=== PATIENT | female | born 1975 | race Caucasian/White ===

== ENCOUNTER 2017-07-27 18:24 | Inpatient (IN) ==
--- NOTE | 2017-07-27 19:51 | DI ---
EXAM: Chest one view HISTORY: Lower extremity edema, cough, fever COMPARISON: 11/25/2015 TECHNIQUE: Single view chest was performed. FINDINGS: There is lower airway bronchial wall thickening. There is no focal airspace consolidation . There is no pleural effusion or pneumothorax. The heart is normal in size. The mediastinal contou r is normal. There is no acute abnormality of the bones. IMPRESSION: Lower airway thickening may represent reactive airways disease or bronchiolitis. No foc al airspace consolidation.
--- NOTE | 2017-07-27 20:23 | ED.PDOC ---
General ED Provider: Dr. MAHAMED MCCLAIN-ER Chief Complaint: Extremity Swelling/Pain Stated Complaint: i was having chest painim better now Time Seen by Physician: 20:22 Mode of Arrival: Walk-In Information Source: Patient Exam Limitations: No limitations Nursing and Triage Documentation Reviewed and Agree: Yes Reviewed sepsis parameters & appropriate labs ordered?: Yes System Inflammatory Response Syndrome: Not Applicable Sepsis Protocol: For patient's 13 years and over: Temp is 96.8 and below OR 101 and greater Pulse >90 BPM Resp >20/minute Acutely Altered Mental Status Are patient's symptoms suggestive of a new infection, such as: -Pneumonia -Skin, Soft Tissue -Endocarditis -UTI -Bone, Joint Infection -Implantable Device -Acute Abdominal Infection -Wound Infection -Meningitis -Blood Stream Catheter Infection -Unknown Cardiovascular Complaint Exam - Chest Pain Complaint/Exam Onset: Gradual Duration: several hours Symptoms Are: Resolved Length of Chest Pain Episodes: 20 min Initial Severity: Mild Current Severity: Mild Location: Reports: Diffuse Pain Radiates: Reports: None Character: Reports: Dull Aggravating: Reports: None Alleviating: Reports: None Associated Signs and Symptoms: Denies: Diaphoresis, Nausea, Vomiting, Fever, Palpitations, Cough, Hemoptysis, Back pain, Abdominal pain, Dizziness, Short of air, Calf pain, Calf swelling History of Healthcare-Acquired Pneumonia: Reports: No AMI/ACS Risk Factors: Reports: None Pulmonary Embolism Risk Factors: Reports: None Prior Care for this Complaint: No Recent Stress Test: No Recent Echo/LV Function: No JVD Present: No Subcutaneous Emphysema Present: No Diminshed Breath Sounds: No Reproducible Chest Wall Pain: No Bilateral Pulses Present: Yes Unequal Pulses Noted: No Order Entry Technician Consulted: No Differential Diagnoses: ACS, Stable Angina Review of Systems - Review Of Systems Constitutional: Reports: No symptoms Eyes: Reports: No symptoms Ears, Nose, Mouth, Throat: Reports: No symptoms Respiratory: Reports: No symptoms Cardiac: Reports: Chest pain GI: Reports: No symptoms : Reports: No symptoms Musculoskeletal: Reports: No symptoms Skin: Reports: No symptoms Neurological: Reports: No symptoms Endocrine: Reports: No symptoms Hematologic/Lymphatic: Reports: No symptoms All Other Systems: Reviewed and Negative Past Medical History - Past Medical History Previously Healthy: No Endocrine: Reports: DM 2 Cardiovascular: Reports: Hypertension Respiratory: Reports: Asthma Hematological: Reports: None Gastrointestinal: Reports: GERD Genitourinary: Reports: None Neuro/Psych: Reports: None Musculoskeletal: Reports: Arthritis Cancer: Reports: None Last Menstrual Period: N/A - Surgical History General Surgical History: Reports: Tubal ligation, , Orthopedic - Family History Family History: Reports: Unknown - Social History Smoking Status: Current every day smoker, Heavy tobacco smoker Hx Substance Use: No Alcohol Screening: None Lives: With family - Immunizations Tetanus Shot up to Date: No Physical Exam - Physical Exam Appearance: Well-appearing, No pain distress, Well-nourished Eyes: NICOLE, EOMI, Conjunctiva clear ENT: Ears normal, Nose normal, Oropharynx normal Neck: Supple Respiratory: Airway patent, Breath sounds clear, Breath sounds equal, Respirations nonlabored Cardiovascular: RRR, Pulses normal, No rub, No murmur GI/: Soft, Nontender, No masses, Bowel sounds normal, No Organomegaly Musculoskeletal: Normal strength, ROM intact, No edema, No calf tenderness Skin: Warm Neurological: Sensation intact, Motor intact, Reflexes intact, Cranial nerves intact, Alert, Oriented Psychiatric: Affect appropriate, Mood appropriate Interpretation - Radiology Interpretation Radiology Interpretation By: Radiologist Radiology Results: Negative Exam Interpreted: CXR - EKG Interpretation Time of EKG #1: 20:23 Rate: Normal Rhythm: Sinus Ectopy: None Gardiner: NL ST Segment: Normal Re-Evaluation - Re-Evaluation Time of Re-Evaluation: 20:24 Status: Improved Vital Signs Stable: Yes Pain Level: 0 Appearance: NAD Lungs: Clear Skin: Warm and Dry Neuro: Alert and Oriented X3 CV: RRR Physician Notification - Case Discussed Physician Notified: dr harvey Time of Notification: 20:24 Critical Care Note - Critical Care Note Total Time (mins): 30 Course - Course Hematology/Chemistry: 07/27/17 19:15 07/27/17 19:15 Orders, Labs, Meds: Lab Review 07/27/17 07/27/17 07/27/17 18:53 19:15 19:15 WBC 8.40 RBC 4.72 Hgb 14.4 Hct 41.1 MCV 87.1 MCH 30.5 MCHC 35.0 RDW Coeff of Christian 12.1 Plt Count 304 Immature Gran % (Auto) 0.4 Neut % (Auto) 54.5 Lymph % (Auto) 33.8 Holmes % (Auto) 6.7 Eos % (Auto) 4.0 Baso % (Auto) 0.6 Immature Gran # (Auto) 0.0 Neut # 4.6 Lymph # 2.8 Holmes # 0.6 Eos # 0.3 Baso # 0.1 D-Dimer (Manual) Puncture Site Lbrach O2 Saturation 96.0 ABG pH 7.452 H ABG pCO2 38.6 ABG pO2 75.0 L ABG HCO3 27 H ABG Total CO2 28 ABG Base Excess 3 H Lamont Test + FiO2 % 21.0 Sodium 136 Potassium 3.9 Chloride 100 Carbon Dioxide 24 Anion Gap 15.9 BUN 19 H Creatinine 0.83 Estimated GFR (MDRD) 75.00 BUN/Creatinine Ratio 22.89 Glucose 228 H Calcium 9.1 Total Bilirubin < 0.3 AST 17 ALT 27 Alkaline Phosphatase 100 H Total Creatine Kinase 56 Troponin I < 0.0100 B-Natriuretic Peptide Total Protein 7.1 Albumin 3.1 L Globulin 4.0 Albumin/Globulin Ratio 0.78 07/27/17 07/27/17 19:15 19:23 WBC RBC Hgb Hct MCV MCH MCHC RDW Coeff of Christian Plt Count Immature Gran % (Auto) Neut % (Auto) Lymph % (Auto) Holmes % (Auto) Eos % (Auto) Baso % (Auto) Immature Gran # (Auto) Neut # Lymph # Holmes # Eos # Baso # D-Dimer (Manual) 332.48 Puncture Site O2 Saturation ABG pH ABG pCO2 ABG pO2 ABG HCO3 ABG Total CO2 ABG Base Excess Lamont Test FiO2 % Sodium Potassium Chloride Carbon Dioxide Anion Gap BUN Creatinine Estimated GFR (MDRD) BUN/Creatinine Ratio Glucose Calcium Total Bilirubin AST ALT Alkaline Phosphatase Total Creatine Kinase Troponin I B-Natriuretic Peptide < 10 Total Protein Albumin Globulin Albumin/Globulin Ratio Orders Category Date Time Status ABG DRAW REQUEST Stat CARDIO 07/27/17 18:53 Completed EKG-(ED ONLY) Stat CARDIO 07/27/17 18:51 Completed Tucking Machine Operator [ED IT COMPLIANCE MANAGER APPLIED] .ONCE EMERGENCY 07/27/17 18:55 Active IV [ED IV/MEDIPORT/POWERPORT] .ONCE EMERGENCY 07/27/17 18:54 Active ABG Stat LAB 07/27/17 18:53 Completed B-TYPE NATRIURETIC PEPTIDE Stat LAB 07/27/17 19:23 Completed CBC W/ AUTO DIFF Stat LAB 07/27/17 19:15 Completed CK [CREATINE KINASE] Stat LAB 07/27/17 19:15 Completed COMPREHENSIVE METABOLIC PANEL Stat LAB 07/27/17 19:15 Completed D-DIMER Stat LAB 07/27/17 19:15 Completed TROPONIN I Stat LAB 07/27/17 19:15 Completed URINALYSIS C & S IF INDICATED Stat LAB 07/27/17 18:53 Uncollected 0.9 % Sodium Chloride [Saline Flush] MEDS 07/27/17 18:54 Ordered 1 syr IVF PRN PRN CXR [CHEST, 1V AP ONLY] Stat RADS 07/27/17 18:53 Completed Medications Generic Name Dose Route Start Last Admin Trade Name Freq PRN Reason Stop Dose Admin Sodium Chloride 1 syr 07/27/17 18:54 Saline Flush IVF PRN PRN To flush IV Vital Signs: Temp Pulse Resp BP Pulse Ox 07/27/17 18:25 97.6 F 104 H 20 177/93 H 94 L SHABANA Risk Score SHABANA Risk Score: Risk Score Odds of by 30D 0 0.1 (0.1-0.2) 1 0.3 (0.2-0.3) 2 0.4 (0.3-0.5) 3 0.7 (0.6-0.9) 4 1.2 (1.0-1.5) 5 2.2 (1.9-2.6) 6 3.0 (2.5-3.6) 7 4.8 (3.8-6.1) Departure - Departure Time of Disposition: 20:24 Disposition: HOME SELF-CARE Discharge Problem: Chest pain Qualifiers: Chest pain type: unspecified Qualified Code(s): R07.9 - Chest pain, unspecified Instructions: Chest Pain (ED) Condition: Good Pt referred to PMD for follow-up: Yes Allergies/Adverse Reactions: [place] [facility] [place] Reaction (Verified 11/21/15 00:02) Home Medications: Ambulatory Orders 1 [No Reported Medications] 07/27/17 Disposition Discussed With: Patient, Family
[2017-07-27] MEDS ORDERED: LOVENOX SUBCUT STA (20:27)
[2017-07-27] MEDS ORDERED: ASPIRIN EC PO STA (20:27)
[2017-07-27 21:16] VITALS: BMI 32.5
[2017-07-28] MEDS ORDERED: TORADOL IVP STA (05:38)
[2017-07-28] MEDS ORDERED: DECADRON 4 MG/ML SDV IM STA (08:43)
[2017-07-28] MEDS ORDERED: PRILOSEC PO PRN (08:45)
[2017-07-28] MEDS ORDERED: ZESTRIL PO SCH (09:00)
[2017-07-28] MEDS: NEURONTIN PO SCH ×4 (10:07→21:20)
--- NOTE | 2017-07-28 12:51 | STRESSMOD ---
Ordering Physician: HOSPITALIST--MARLY LÓPEZ Date of Test: 07/28/17 Medical History: HEART CATH 15 YEARS AGO, COPD, CHEST PAIN, DM2, HTN, HYPERLIPIDEMIA Current Medications: HUMULIN, GABAPENTIN, PRILOSEC Resting EKG: SINUS RHYTHM/ NO ACUTE CHANGES Target Heart Rate: 150/177 STAGE MPH/GRADE HEART RATE BPM BLOOD PRESSURE mmhg RHYTHM S-T SEGMENT UP DOWN SYMPTOMS,COMMENTS At Rest 80 168/90 SR X NONE 1 1.7/0% 106 172/90 SR X NONE 2 1.7/5% 115 176/92 SR X NONE 3 1.7/10% 180/100 4 2.5/12% 5 3.4/14% 6 4.2/16% 7 5.18% Immediately after 133 SR X SHORT OF BREATH Total Time: 10:00 Maximum Heart Rate Reached: 133 Reason for Termination: SHORT OF BREATH 3 MINUTES POST EXERCISE: HR 98 BPM, BP 182/92 MMHG 5 MINUTES POST EXERCISE: HR 93 BPM, BP 172/88 MMHG INTERPRETATION: 98% OXYGEN SATURATION WITH EXERCISE ON ROOM AIR METS 7.0 1. NO EVIDENCE OF ISCHEMIA BY ST-T WAVE FROM HEART RATE 80 BPM TO 133 BPM 2. NO CHEST PAIN OR DISCOMFORT 3. BLOOD PRESSURE RESPONSE : HYPERTENSION, RESTING AND POST EXERCISE 4. NO ARRHYTHMIAS NORMAL LEFT VENTRICULAR CONTRACTILITY--RESTING AND POST EXERCISE MTDD
--- NOTE | 2017-07-28 12:54 | ECHOSTRESS ---
Date of Exam: 07/28/17 Ordering Physician: HOSPITALIST--MARLY LÓPEZ Reason for Echo: HYPERTENSION, CHEST PAIN, STRESS TEST--NO ISCHEMIA M-Mode Normal Adult Results LV Dimensions Normal Adult Results AoV Opening excursions >1.6 LVEDD-base- 3.5-5.8 Ao root dimensions 2.0-3.7 LVESD-base- 3.1-4.6 L. Atrium dimensions 1.9-3.8 Post. Wall thickness 0.8-1.1 IV septum (thickness) 0.7-1.2 Post. Wall excursion 0.72-1.3 Septal motion Systolic motion R. Ventricular cavity 1.5-2.0 LVEF 60% Paradoxical septal wall motion 2-D: NORMAL LEFT VENTRICULAR CONTRACTILITY--RESTING AND POST EXERCISE M-MODE: MV: AV: TV: PV: CHAMBER SIZE: WALL MOTION: NORMAL LEFT VENTRICULAR CONTRACTILITY--RESTING AND POST EXERCISE PERICARDIUM: INTERPRETATION: 1. NORMAL LEFT VENTRICULAR CONTRACTILITY--RESTING AND POST EXERCISE MTDD
[2017-07-28] MEDS: HUMULIN R SUBCUT PRN ×3 (13:44→22:02)
[2017-07-28] MEDS ORDERED: JANUVIA PO SCH (15:00)
[2017-07-28] MEDS ORDERED: NON-FORMULARY MEDICATION PO SCH (15:45)
[2017-07-28] MEDS: AMOXIL PO SCH ×2 (15:57→21:20)
[2017-07-28] MEDS ORDERED: LIPITOR PO SCH (21:00)
[2017-07-28] MEDS ORDERED: AMOXIL ONE (21:14)
[2017-07-29 06:18] VITALS: BP 118/73; TEMP 97.7
[2017-07-29] MEDS: HUMULIN R SUBCUT PRN (06:27)
--- NOTE | 2017-08-21 14:19 | HP ---
DATE OF SERVICE: 07/28/17 CHIEF COMPLAINT: Chest pain. HISTORY OF PRESENT ILLNESS: This is a 42 year old female who came to the emergency room with chest pain, left sided. The patient had been having gradually increasing leg edema and started having shortness of breath. The left sided chest pain does not radiate. The patient got scared and came to the emergency room for the evaluation and was seen by Dr. Ching in the emergency room. Initial blood work was normal. D dimer was negative. ABG showed the pH of 7.452, PCO2 38.6, PO2 75. Chemistry was normal. Glucose 261. Meanwhile, asking the patient, the patient did say that she ran out of her medications and for almost six months has not been taking any medication for the cholesterol and the diabetes. At that time, she was admitted to the hospital for the evaluation of the chest pain and the leg edema. REVIEW OF SYSTEMS: Weakness, tiredness, leg edema. CONSTITUTIONAL: No fever, no chills. HEENT: Normal. ENDOCRINE: No weight gain; no weight loss. CVS: Chest pain. No PND, no orthopnea. Shortness of breath. No PND, no orthopnea. RESPIRATORY: No cough, no congestion. No hemoptysis. GI: No nausea, no vomiting. No abdominal pain. No melena. : No hematuria. No polyuria. MUSCULOSKELETAL: No joint swelling. PSYCHIATRIC: Stressed out and anxious. No depression. No suicidal thoughts. No homicidal thoughts. SKIN: Intact, no open lesions. PAST MEDICAL HISTORY: Coronary artery disease. The patient did have a heart catheterization at the age of 26. Heart murmur Dyslipidemia Diabetes Peripheral neuropathy COPD Asthma Peptic ulcer disease Hiatal hernia The patient has not been taking any medications for almost six months. Rheumatoid arthritis Bipolar disorder Depression Anxiety Substance use disorder PAST SURGICAL HISTORY: Tubal ligation Tonsillectomy PERSONAL HISTORY: Does smoke. No alcohol and no drugs. FAMILY HISTORY: Significant for the diabetes and heart problem. MEDICATIONS: Insulin, Gabapentin, Omeprazole, Multivitamin and Combivent inhalant. ALLERGIES: Cefadroxil PHYSICAL EXAMINATION: V/S: Blood pressure 173/93, respiratory rate 20, heart rate 104, temperature 97.6, saturation 94 on room air. HEENT: Atraumatic, normocephalic. No scleral icterus. Mucosa dry. NECK: Supple. No JVD, no bruit. No lymphadenopathy. No thyromegaly. HEART: S1, S2 normal. No murmur. No cyanosis or clubbing. No ascites. LUNGS: Clear to auscultation. No rales or rhonchi. ABDOMEN: Soft, nontender. Bowel sounds are active. No CVA tenderness. No rigidity or guarding. EXTREMITIES: No cyanosis, clubbing or pedal edema. MUSCULOSKELETAL: Normal joints, no swelling. NEUROLOGICAL: Normal. SKIN: Intact; no open lesions. LYMPHATIC: No lymph nodes palpable. X-RAY: Does show the reactive airway disease. LABS: Sodium 136, potassium 3.9, chloride 100, bicarb 24, BUN 19, creatinine 0.83, glucose 228. The first set of cardiac enzymes are negative. White count 8.40, hemoglobin 14.4, hematocrit 41.4, platelet count 304. ASSESSMENT: 1. CHEST PAIN, RULE OUT ACUTE CORONARY SYNDROME 2. SHORTNESS OF BREATH AND WORSENING LEG EDEMA, RULE OUT CARDIAC VERSUS PULMONARY PROBLEMS 3. DIABETES, OUT OF MEDICATION, UNCONTROLLED DIABETES. 4. DYSLIPIDEMIA 5. OBESITY PLAN: 1. Admit the patient to the regular floor. 2. CBC, CMP today and daily. 3. Cardiac enzymes and Troponin. 4. Toradol for the pain. 5. Lovenox for the DVT prophylaxis. 6. Continue home medications. TIME SPENT: MORE THAN 75 minutes today. ROBERT
--- NOTE | 2017-08-21 14:29 | PN ---
DATE OF SERVICE: 07/28/17 SUBJECTIVE: The patient was admitted with chest pain. The pain is better. She still has the leg edema and is worried about the leg edema. On further questioning, the patient also says that patient has been depressed a lot. Not been able to take her anxiety and depression medications. Otherwise, the chest pain is better and she is worried about the medication. She says that she was not taking the medication as she was not able to afford them. PHYSICAL EXAMINATION: V/S: Blood pressure 133/80, respiratory rate 18, heart rate 101, temperature 97.6, saturation 98. HEENT: Normocephalic, atraumatic. Mucosa dry. NECK: Supple. No JVD, no carotid bruit. No lymphadenopathy. LUNGS: Bilateral basilar crackles. No rales or rhonchi. HEART: S1, S2 normal. No S3. No murmur, gallop or regurgitation. ABDOMEN: Soft, nontender. Bowel sounds active. No rigidity. No rebound or guarding. No CVA tenderness. EXTREMITIES: No clubbing, cyanosis. 1+ edema of lower extremities. MUSCULOSKELETAL: No joint swelling. NEUROLOGIC: Awake, alert, oriented times three. No focal deficit. LYMPHATIC: No lymph nodes palpable. SKIN: Intact. LABS: White count 8.54, hemoglobin 13.5, hematocrit 38.9, platelet count 280, sodium 137, potassium 3.8, chloride 101, bicarb 23, BUN 19, creatinine 0.81, glucose 281, A1C 12.3. Total cholesterol is 264, triglycerides 599. Three sets of cardiac enzymes are negative. BNP is negative. ASSESSMENT: 1. CHEST PAIN, RULE OUT ACS 2. DIABETES UNCONTROLLED. A1C IS 12.3 3. DYSLIPIDEMIA 4. HYPERTENSION 5. OBESITY PLAN: 1. Stress echo. 2. Lifestyle modification and weight loss was discussed. 3. Will talk to the pharmacy and update her medication list. TIME SPENT: More than 35 minutes today ROBERT
--- NOTE | 2017-08-21 15:24 | DS ---
DATE OF SERVICE: 07/29/17 FINAL DIAGNOSIS: 1. CHEST PAIN, NONCARDIAC 2. UNCONTROLLED DIABETES WITH AN A1C 12.3 3. DYSLIPIDEMIA 4. NONCOMPLIANCE WITH MEDICATION 5. HISTORY OF HEART CATHETERIZATION 6. PERIPHERAL NEUROPATHY 7. CHRONIC OBSTRUCTIVE PULMONARY DISEASE 8. GERD 9. PEPTIC ULCER DISEASE 10. TUBAL LIGATION 11. RHEUMATOID ARTHRITIS 12. DEPRESSION 13. BIPOLAR DISORDER PLAN: 1. Discharge the patient home. 2. New medications: Amoxicillin 500 mg twice a day for 7 days Neurontin 400 mg twice a day Prilosec 20 mg p.o. daily Lisinopril 5 mg p.o. daily Invokana 200 mg p.o. daily Januvia 100 mg p.o. daily Lipitor 20 mg p.o. daily 3. One Touch Ultra glucose monitoring was given. 4. Diet: Cardiac and diabetic diet discussed. 5. Activity: As much as tolerated. DISEASE SPECIFIC EDUCATION: About diabetes, noncompliance with the medications , risk of coronary artery disease and stroke were discussed. The patient verbalized understanding. HOSPITAL COURSE: Sabrina Herrera who is a 42 year old female came to the emergency room with 3 to 4 days onset of the left sided chest pain and tightness. The patient is a diabetic and dyslipidemic, but not been taking the medication over the past couple of months. Has not even been seen by a primary care for a couple of months. She came to the emergency room. EKG was normal sinus. The first set of cardiac enzymes were negative. Glucose was 228. She was admitted to the hospital for chest pain, rule out acute coronary syndrome and uncontrolled diabetes. Lipid profile was done which showed the total cholesterol 264, triglycerides 599, Hb A1C was 12.3. The patient was restarted on the Metformin and Invokana. She was started on the cholesterol medications too. Diet control, weight loss and lifestyle modifications was discussed and she verbalized understanding. Meanwhile, Dr. Evans did the stress echo and echocardiogram which came out to be negative. As the patient's tests were negative and the sugars were getting better, the patient was discharged to home today with the medications, scripts and the samples of the Invokana was given. TIME SPENT: MORE THAN 65 MINUTES TODAY [facility]
== END 2017-07-29 08:15 | disposition home or self-care (01) | DRG 313 ==
LOC: ED 18:24 → MEDSURG B 20:35
PROVIDERS: ADMIT Emergency Medicine; ATTEND Emergency Medicine
DX: R07.89 Other chest pain (principal); E11.65 Type 2 diabetes mellitus with hyperglycemia; R60.0 Localized edema; M79.605 Pain in left leg; M79.604 Pain in right leg; R06.02 Shortness of breath; E78.5 Hyperlipidemia, unspecified; G62.9 Polyneuropathy, unspecified; J44.9 Chronic obstructive pulmonary disease, unspecified; K21.9 Gastro-esophageal reflux disease without esophagitis; K27.9 Peptic ulcer, site unspecified, unspecified as acute or chronic, without hemorrhage or perforation; M06.9 Rheumatoid arthritis, unspecified; F32.9 Major depressive disorder, single episode, unspecified; E66.9 Obesity, unspecified; F17.200 Nicotine dependence, unspecified, uncomplicated; Z91.14 Patient's other noncompliance with medication regimen; Z79.4 Long term (current) use of insulin; Z98.890 Other specified postprocedural states; Z98.51 Tubal ligation status
CPT/HCPCS: 36415; 80053; 80061; 81001; 82550; 82803; 82962; 83036; 83880; 84439; 84443; 84484; 85025; 85379; 93005; 93010; 99285

== ENCOUNTER 2017-08-16 12:27 | Outpatient (CLI) ==
--- NOTE | 2017-08-21 12:14 | MAMMO ---
EXAM: Digital screening mammogram with tomosynthesis HISTORY: Screening COMPARISON: None FINDINGS: Digital MLO and CC views of the right and left breast were performed. Tomosynthesis was p erformed. Computer aided detection was utilized. There are scattered fibroglandular densities. Ther e is no evidence for mass, asymmetry, distortion, or suspicious calcifications in either breast. IMPRESSION: 1. No evidence of malignancy in the right or left breast. 2. Annual screening mammogram is recommended in one year. BIRADS category 1, negative examination
== END 2017-08-16 12:28 | disposition home or self-care (01) ==
LOC: RAD 12:27
PROVIDERS: ATTEND Emergency Medicine
DX: Z12.31 Encounter for screening mammogram for malignant neoplasm of breast (principal)
CPT/HCPCS: 77067

== ENCOUNTER 2018-05-18 07:50 | Emergency (ER) ==
[2018-05-18 07:57] VITALS: BP 157/92; TEMP 97.2; BMI 34.5
[2018-05-18] MEDS ORDERED: DILAUDID 0.5 MG/0.5 ML SYRINGE IVP STA (08:23)
[2018-05-18] MEDS ORDERED: TORADOL IVP STA (08:23)
[2018-05-18] MEDS ORDERED: ZOFRAN 4 MG/2 ML IVP STA (08:27)
[2018-05-18] MEDS ORDERED: SODIUM CHLORIDE 1,000 ML IV STA (08:35)
--- NOTE | 2018-05-18 09:42 | CT ---
EXAM: CT Abdomen without contrast. CT Pelvis without contrast. HISTORY: Left flank pain. COMPARISON: 11/21/2015. TECHNIQUE: Multiple axial images of the abdomen and pelvis were obtained without intravenous contras t. Images were reformatted in the sagittal and coronal plane. FINDINGS: Please note that evaluation of the abdominal and pelvic structures is limited due to lack of intravenous contrast. Bibasilar ground-glass opacities likely represent subsegmental atelectasis. No acute osseous abnorma lity identified. Of the liver is enlarged. There is heterogeneity of the liver parenchyma with geog raphic areas of low density. The gallbladder, pancreas, spleen, and right adrenal gland appear cameron l. There is a 3.4 x 3 cm left adrenal nodule which demonstrates homogeneous fluid density. No calci fied renal stones or hydronephrosis identified. No ureteral or bladder calculi are seen. The bladde r appears normal. The bowel is normal in course and caliber without evidence for obstruction or inflammatory process. The appendix is normal. Uterus demonstrates normal contour. Phleboliths seen in the pelvis. Athero sclerotic calcifications are present. IMPRESSION: 1. No evidence for nephrolithiasis or obstructive uropathy. 2. Hepatomegaly with geographic fatty infiltration. 3. Stable benign left adrenal adenoma.
--- NOTE | 2018-05-18 10:10 | ED.PDOC ---
General ED Provider: Dr. PRASANTH HORVATH Chief Complaint: Back Pain Stated Complaint: low back pain /left flank pain Time Seen by Physician: 08:00 (mata present at all times no injury reported ) Mode of Arrival: Walk-In Information Source: Patient Exam Limitations: No limitations Primary Care Provider: NARESH ROBERTO Nursing and Triage Documentation Reviewed and Agree: Yes Does patient meet sepsis criteria?: No System Inflammatory Response Syndrome: Not Applicable Sepsis Protocol: For patient's 13 years and over: Temp is 96.8 and below OR 101 and greater Pulse >90 BPM Resp >20/minute Acutely Altered Mental Status Are patient's symptoms suggestive of a new infection, such as: -Pneumonia -Skin, Soft Tissue -Endocarditis -UTI -Bone, Joint Infection -Implantable Device -Acute Abdominal Infection -Wound Infection -Meningitis -Blood Stream Catheter Infection -Unknown Musculoskeletal Complaint Exam - Back Pain Complaint/Exam Mechanism of Injury: Reports: No known trauma Onset/Duration: today Symptoms Are: Still present Timing: Intermittent Episodes Lasting: Hours Initial Severity: Severe Current Severity: Severe Location: Reports: Diffuse Character: Reports: Throbbing Aggravating: Reports: Movements, Lifting, Bending, Walking Alleviating: Reports: Rest Associated Signs and Symptoms: Reports: Flank pain (left). Denies: Swelling, Redness, Bruising, Fever, Weakness, Numbness, Tingling, Abdominal pain, Bladder incontinence, Bowel incontinence, Weight loss, Pain with weight bearing Related History: Reports: Similar episode Review of Systems - Review Of Systems Constitutional: Reports: No symptoms Eyes: Reports: No symptoms Ears, Nose, Mouth, Throat: Reports: No symptoms Respiratory: Reports: No symptoms Cardiac: Reports: No symptoms GI: Reports: No symptoms : Reports: No symptoms Musculoskeletal: Reports: Back pain Skin: Reports: No symptoms Neurological: Reports: No symptoms Endocrine: Reports: No symptoms Hematologic/Lymphatic: Reports: No symptoms All Other Systems: Reviewed and Negative Past Medical History - Past Medical History Previously Healthy: No Endocrine: Reports: DM 2 Cardiovascular: Reports: Hypertension Respiratory: Reports: Asthma Hematological: Reports: None Gastrointestinal: Reports: GERD Genitourinary: Reports: None Neuro/Psych: Reports: None Musculoskeletal: Reports: Arthritis Cancer: Reports: None Last Menstrual Period: 6 months ago--menopause - Surgical History General Surgical History: Reports: Tubal ligation, , Orthopedic - Family History Family History: Reports: Unknown - Social History Smoking Status: Current every day smoker, Heavy tobacco smoker Hx Substance Use: No Alcohol Screening: None Physical Exam - Physical Exam Appearance: Well-appearing, No pain distress, Well-nourished Eyes: NICOLE, EOMI, Conjunctiva clear ENT: Ears normal, Nose normal, Oropharynx normal Respiratory: Airway patent, Breath sounds clear, Breath sounds equal, Respirations nonlabored Cardiovascular: RRR, Pulses normal, No rub, No murmur GI/: Soft, Nontender, No masses, Bowel sounds normal, No Organomegaly Musculoskeletal: Normal strength, ROM intact, No edema, No calf tenderness Skin: Warm, Dry, Normal color Neurological: Sensation intact, Motor intact, Reflexes intact, Cranial nerves intact, Alert, Oriented Psychiatric: Affect appropriate, Mood appropriate Re-Evaluation - Re-Evaluation Time of Re-Evaluation: 09:00 Status: Improved Vital Signs Stable: Yes Pain Level: 0 watching tv Appearance: NAD Lungs: Clear Skin: Warm and Dry Neuro: Alert and Oriented X3 CV: RRR - Re-Evaluation Time of Re-Evaluation: 10:43 Status: Improved Vital Signs Stable: Yes Pain Level: 0 Appearance: NAD Skin: Warm and Dry Neuro: Alert and Oriented X3 CV: RRR Critical Care Note - Critical Care Note Total Time (mins): 0 Course - Course Hematology/Chemistry: 05/18/18 08:35 05/18/18 08:35 Orders, Labs, Meds: Lab Review 05/18/18 05/18/18 05/18/18 08:35 08:35 08:35 WBC 9.04 RBC 4.83 Hgb 14.3 Hct 41.6 MCV 86.1 MCH 29.6 MCHC 34.4 RDW Coeff of Christian 12.9 Plt Count 341 Immature Gran % (Auto) 0.4 Neut % (Auto) 60.6 Lymph % (Auto) 26.5 [place] % (Auto) 7.6 Eos % (Auto) 4.5 Baso % (Auto) 0.4 Immature Gran # (Auto) 0.0 Neut # (Auto) 5.5 Lymph # (Auto) 2.4 [place] # (Auto) 0.7 Eos # (Auto) 0.4 Baso # (Auto) 0.0 Sodium 135.5 L Potassium 4.16 Chloride 100.3 Carbon Dioxide 32.1 H Anion Gap 7.26 BUN 23.9 H Creatinine 0.94 Estimated GFR (MDRD) 65.00 BUN/Creatinine Ratio 25.42 Glucose 230.4 H Calcium 9.60 Total Bilirubin 0.29 AST 34.8 ALT 30.5 Alkaline Phosphatase 78.4 Total Protein 7.05 Albumin 3.91 Globulin 3.14 Albumin/Globulin Ratio 1.24 Serum , Qual Negative Orders Category Date Time Status ED IV/MEDIPORT/POWERPORT .ONCE EMERGENCY 05/18/18 08:23 Active CBC W/ AUTO DIFF Stat LAB 05/18/18 08:35 Completed COMPREHENSIVE METABOLIC PANEL Stat LAB 05/18/18 08:35 Completed SERUM Stat LAB 05/18/18 08:35 Completed URINALYSIS C & S IF INDICATED Stat LAB 05/18/18 08:23 Uncollected 0.9 % Sodium Chloride [Saline Flush] MEDS 05/18/18 08:22 Active 1 syr IVF PRN PRN Hydromorphone HCl [Dilaudid 0.5 mg/0.5 ml Syringe] MEDS 05/18/18 08:23 Discontinued 0.5 mg IVP ONCE STA Ketorolac Tromethamine [Toradol] MEDS 05/18/18 08:23 Discontinued 30 mg IVP ONCE STA Ondansetron HCl/Pf [Zofran 4 mg/2 ml] MEDS 05/18/18 08:27 Discontinued 4 mg IVP ONCE STA Sodium Chloride 0.9% [Sodium Chloride] 1,000 ml MEDS 05/18/18 08:35 Active IV 200 mls/hr CT ABD/PEL WO RENAL STONE PROT Stat RADS 05/18/18 08:24 Completed Medications Generic Name Dose Route Start Last Admin Trade Name Freq PRN Reason Stop Dose Admin Sodium Chloride 1,000 mls @ 200 mls/hr 05/18/18 08:35 05/18/18 08:35 Sodium Chloride IV 05/18/18 13:34 200 mls/hr .Q5H STA Administration Sodium Chloride 1 syr 05/18/18 08:22 Saline Flush IVF PRN PRN To flush IV Discontinued Medications Generic Name Dose Route Start Last Admin Trade Name Freq PRN Reason Stop Dose Admin Hydromorphone HCl 0.5 mg 05/18/18 08:23 05/18/18 08:39 Dilaudid 0.5 Mg/0.5 Ml Syringe IVP 05/18/18 08:24 0.5 mg ONCE STA Administration Ketorolac Tromethamine 30 mg 05/18/18 08:23 05/18/18 08:38 Toradol IVP 05/18/18 08:24 30 mg ONCE STA Administration Ondansetron HCl 4 mg 05/18/18 08:27 05/18/18 08:37 Zofran 4 Mg/2 Ml IVP 05/18/18 08:28 4 mg ONCE STA Administration Vital Signs: Temp Pulse Resp BP Pulse Ox 05/18/18 07:50 97.2 F L 95 H 16 157/92 H 96 Departure - Departure Time of Disposition: 11:20 (nurse was present at all times ct reports given) Disposition: HOME SELF-CARE Discharge Problem: Backache Back pain Qualifiers: Back pain location: low back pain Chronicity: acute Back pain laterality: left Sciatica presence: without sciatica Qualified Code(s): M54.5 - Low back pain Uncontrolled diabetes mellitus Qualifiers: Diabetes mellitus type: other specified (including ROSA) Glycemic state: with hyperglycemia Qualified Code(s): E13.65 - Other specified diabetes mellitus with hyperglycemia Instructions: Low Back Strain (ED), Flank Pain (ED), Arthralgia (ED), Acute Low Back Pain (ED) Condition: Good Pt referred to PMD for follow-up: Yes IPMP verified?: No Additional Instructions: Please call your Family Physician as soon as possible to schedule a follow-up appointment. Allergies/Adverse Reactions: Allergies cefadroxil hydrate [From [facility]] Adverse Reaction (Verified 05/18/18 07:58) Home Medications: Ambulatory Orders Multivitamin [Multiple Vitamins] 1 each PO DAILY 07/27/17
== END 2018-05-18 11:05 | disposition home or self-care (01) ==
LOC: ED 07:50
DX: M54.5 Low back pain (principal); E11.65 Type 2 diabetes mellitus with hyperglycemia; F17.210 Nicotine dependence, cigarettes, uncomplicated; I10 Essential (primary) hypertension
CPT/HCPCS: 36415; 74176; 80053; 81001; 84703; 85025; 96361; 96374; 96375; 99283

== ENCOUNTER 2018-06-06 09:28 | Outpatient (CLI) | END 2018-06-06 09:29 | disposition home or self-care (01) | LOC: RHC-LAB 09:28 | PROVIDERS: ATTEND Nurse Practitioner Family | DX: I10 Essential (primary) hypertension (principal); E78.5 Hyperlipidemia, unspecified; E11.69 Type 2 diabetes mellitus with other specified complication | CPT/HCPCS: 36415; 80053; 80061; 83036; 84443; 85025 ==

== ENCOUNTER 2018-06-13 12:39 | Outpatient (CLI) ==
[2018-06-13] MEDS ORDERED: ALBUTEROL 0.083% NEB NEB STA (13:04)
== END 2018-06-13 12:40 | disposition home or self-care (01) ==
LOC: CAR 12:39
PROVIDERS: ATTEND Nurse Practitioner Family
DX: R05 Cough (principal); Z72.0 Tobacco use

== ENCOUNTER 2018-08-03 16:30 | Emergency (ER) ==
[2018-08-03 16:37] VITALS: BP 180/104; TEMP 98.1; BMI 37.5
--- NOTE | 2018-08-03 17:30 | US ---
Exam: Ultrasound right upper quadrant History: Abdominal pain FINDINGS: Liver parenchymal echogenicity is diffusely increased. No focal abnormalities of the live r are seen. The gallbladder appears normal. Patent antegrade portal vein, duct diameter of 0.69 cm is enlarged. The pancreas is incompletely visualized. Visualized portions of the pancreas appear no rmal. No ascites is seen. Right kidney is not seen. Impression: 1. Hyperechoic liver likely representing steatosis. 2. Enlarged common duct without dilated gallbladder. No cholelithiasis or choledocholithiasis is se en. Correlate with laboratory values.
[2018-08-03] MEDS ORDERED: LIDOCAINE HCL 1% SDV IM STA (17:48)
[2018-08-03] MEDS ORDERED: ROCEPHIN IM STA (17:48)
--- NOTE | 2018-08-03 17:50 | ED.PDOC ---
General ED Provider: Dr. PRASANTH HORVATH Chief Complaint: Abdominal Pain Stated Complaint: abdominal pain Time Seen by Physician: 16:32 (seen with latoya hernandez at all time negative trauma no fever no vomiting ) Mode of Arrival: Walk-In Information Source: Patient Exam Limitations: No limitations (no prior surgery ) Primary Care Provider: NARESH ROBERTO Nursing and Triage Documentation Reviewed and Agree: Yes Does patient meet sepsis criteria?: No System Inflammatory Response Syndrome: Not Applicable Sepsis Protocol: For patient's 13 years and over: Temp is 96.8 and below OR 101 and greater Pulse >90 BPM Resp >20/minute Acutely Altered Mental Status Are patient's symptoms suggestive of a new infection, such as: -Pneumonia -Skin, Soft Tissue -Endocarditis -UTI -Bone, Joint Infection -Implantable Device -Acute Abdominal Infection -Wound Infection -Meningitis -Blood Stream Catheter Infection -Unknown GI Complaint Exam - Abdominal Pain Complaint/Exam Onset: Gradual Duration: 2 days Symptoms Are: Still present Timing: Intermittent Initial Severity: Mild Current Severity: Mild Location of Pain: Diffuse, RUQ Radiates To: Reports: Back, Flank (right). Denies: Chest Character: Reports: Aching Aggravating: Reports: None Alleviating: Reports: None Associated Signs and Symptoms: Denies: Diaphoresis, Fever, Cough, Chest pain, Dizziness, Back pain, Constipation, Blood in stool, Dysuria, Urinary frequency, Decreased urine output, Decreased appetite, Vaginal bleeding, Vaginal discharge , Nausea, Vomiting, Diarrhea, Sore throat, Decreased activity Related History: Reports: Similar episode AAA Risk Factors: Reports: Hypertension Cardiac Risk Factors: Reports: DM, Hypertension Ectopic Risk Factors: Reports: None Ovarian Torsion Risk Factors: Reports: Tubal ligation Surgical Obstruction Risk Factors: Reports: None Related Surgical History: Reports: None Patient Rh Status: Unknown Differential Diagnoses: Appendicitis, Bowel Obstruction, Constipation, Gastroenteritis, Hepatitis, Pancreatitis, GB, UTI Review of Systems - Review Of Systems Constitutional: Reports: No symptoms Eyes: Reports: No symptoms Ears, Nose, Mouth, Throat: Reports: No symptoms Respiratory: Reports: No symptoms Cardiac: Reports: No symptoms GI: Reports: Abdominal pain : Reports: No symptoms Musculoskeletal: Reports: No symptoms Skin: Reports: No symptoms Neurological: Reports: No symptoms Endocrine: Reports: No symptoms Hematologic/Lymphatic: Reports: No symptoms All Other Systems: Reviewed and Negative Past Medical History - Past Medical History Previously Healthy: No Endocrine: Reports: DM 2 Cardiovascular: Reports: Hypertension Respiratory: Reports: Asthma Hematological: Reports: None Gastrointestinal: Reports: GERD Genitourinary: Reports: None Neuro/Psych: Reports: None Musculoskeletal: Reports: Arthritis Cancer: Reports: None Last Menstrual Period: 8 months ago - Surgical History General Surgical History: Reports: Tubal ligation, , Orthopedic - Family History Family History: Reports: Unknown - Social History Smoking Status: Current every day smoker, Heavy tobacco smoker Hx Substance Use: No Alcohol Screening: None Physical Exam - Physical Exam Appearance: Well-appearing, No pain distress, Well-nourished Eyes: NICOLE, EOMI, Conjunctiva clear ENT: Ears normal, Nose normal, Oropharynx normal Respiratory: Airway patent, Breath sounds clear, Breath sounds equal, Respirations nonlabored Cardiovascular: RRR, Pulses normal, No rub, No murmur GI/: Soft, Nontender, No masses, Bowel sounds normal, No Organomegaly Musculoskeletal: Normal strength, ROM intact, No edema, No calf tenderness Skin: Warm, Dry, Normal color Neurological: Sensation intact, Motor intact, Reflexes intact, Cranial nerves intact, Alert, Oriented Psychiatric: Affect appropriate, Mood appropriate Interpretation - Radiology Interpretation Radiology Interpretation By: Radiologist Radiology Results: Positive (fatty liver) Re-Evaluation - Re-Evaluation Time of Re-Evaluation: 17:51 (ct findings of fatty liver discussed ultra sound discussed ) Status: Improved Vital Signs Stable: Yes Pain Level: 0 Appearance: NAD Lungs: Clear Skin: Warm and Dry Neuro: Alert and Oriented X3 CV: RRR Critical Care Note - Critical Care Note Total Time (mins): 0 Course - Course Hematology/Chemistry: 08/03/18 17:24 08/03/18 17:24 Orders, Labs, Meds: Lab Review 08/03/18 08/03/18 08/03/18 17:04 17:08 17:24 WBC 7.86 RBC 4.56 Hgb 13.4 Hct 40.2 MCV 88.2 MCH 29.4 MCHC 33.3 RDW Coeff of Christian 13.6 Plt Count 288 Immature Gran % (Auto) 0.3 Neut % (Auto) 51.0 Lymph % (Auto) 38.3 [place] % (Auto) 4.8 Eos % (Auto) 4.8 Baso % (Auto) 0.8 Immature Gran # (Auto) 0.0 Neut # (Auto) 4.0 Lymph # (Auto) 3.0 [place] # (Auto) 0.4 Eos # (Auto) 0.4 Baso # (Auto) 0.1 Sodium Potassium Chloride Carbon Dioxide Anion Gap BUN Creatinine Estimated GFR (MDRD) BUN/Creatinine Ratio Glucose Calcium Total Bilirubin AST ALT Alkaline Phosphatase Total Protein Albumin Globulin Albumin/Globulin Ratio Amylase Lipase Serum , Qual Urine Color Yellow Urine Clarity Clear Urine pH 6.0 Ur Specific [place] >=1.030 Urine Protein 3+ Urine Glucose (UA) Trace Urine Ketones Negative Urine Blood 2+ Urine Nitrite Negative Urine Bilirubin Negative Urine Urobilinogen 0.2 Ur Leukocyte Esterase Negative Urine Microscopic WBC 5-10 Ur Squamous Epith Cells 5-10 Urine Bacteria 1+ Granular Casts 0-2 Influ A Molecular Assay Negative by naat Influ B Molecular Assay Negative by naat 08/03/18 08/03/18 17:24 17:24 WBC RBC Hgb Hct MCV MCH MCHC RDW Coeff of Christian Plt Count Immature Gran % (Auto) Neut % (Auto) Lymph % (Auto) [place] % (Auto) Eos % (Auto) Baso % (Auto) Immature Gran # (Auto) Neut # (Auto) Lymph # (Auto) [place] # (Auto) Eos # (Auto) Baso # (Auto) Sodium 136.0 Potassium 3.85 Chloride 105.2 Carbon Dioxide 33.5 H Anion Gap 1.15 BUN 21.2 H Creatinine 0.94 Estimated GFR (MDRD) 65.00 BUN/Creatinine Ratio 22.55 Glucose 117.0 H Calcium 8.39 L Total Bilirubin 0.31 AST 30.0 ALT 26.7 Alkaline Phosphatase 109.8 Total Protein 5.91 L Albumin 2.91 L Globulin 3.00 Albumin/Globulin Ratio 0.97 Amylase < 30.0 L Lipase 32.2 Serum , Qual Negative Urine Color Urine Clarity Urine pH Ur Specific [place] Urine Protein Urine Glucose (UA) Urine Ketones Urine Blood Urine Nitrite Urine Bilirubin Urine Urobilinogen Ur Leukocyte Esterase Urine Microscopic WBC Ur Squamous Epith Cells Urine Bacteria Granular Casts Influ A Molecular Assay Influ B Molecular Assay Orders Category Date Time Status NPO REMINDER: IMAGING ONCE CARE 08/03/18 16:53 Completed AMYLASE Stat LAB 08/03/18 17:24 Completed CBC W/ AUTO DIFF Stat LAB 08/03/18 17:24 Completed COMPREHENSIVE METABOLIC PANEL Stat LAB 08/03/18 17:24 Completed FLU A/B MOLECULAR Stat LAB 08/03/18 17:08 Completed LIPASE Stat LAB 08/03/18 17:24 Completed MOLECULAR GROUP A STREP Stat LAB 08/03/18 17:08 Completed SERUM Stat LAB 08/03/18 17:24 Completed URINALYSIS C & S IF INDICATED Stat LAB 08/03/18 17:04 Completed URINE CULTURE Stat LAB 08/03/18 17:04 Received Ceftriaxone Sodium [Rocephin] MEDS 08/03/18 17:48 Stat 1 gm IM ONCE STA Lidocaine HCl/Pf [Lidocaine HCl 1% Sdv] MEDS 08/03/18 17:48 Stat 2.1 ml IM ONCE STA CT ABDOMEN/PELVIS WO CONTRAST Stat RADS 08/03/18 16:50 Taken ULTRASOUND ABDOMEN, RT. UPPER QUAD [U/S ABDOMEN RT RADS 08/03/18 16:53 Completed UPPER QUAD] Stat Medications Generic Name Dose Route Start Last Admin Trade Name Freq PRN Reason Stop Dose Admin Ceftriaxone Sodium 1 gm 08/03/18 17:48 Rocephin IM 08/03/18 17:49 ONCE STA Lidocaine HCl 2.1 ml 08/03/18 17:48 Lidocaine Hcl 1% Sdv IM 08/03/18 17:49 ONCE STA Vital Signs: Temp Pulse Resp BP Pulse Ox 08/03/18 16:31 98.1 F 95 H 20 180/104 H 96 Departure - Departure Time of Disposition: 17:51 Disposition: HOME SELF-CARE Discharge Problem: Abdominal pain, Fatty liver UTI (urinary tract infection) Qualifiers: Urinary tract infection type: site unspecified Hematuria presence: with hematuria Qualified Code(s): N39.0 - Urinary tract infection, site not specified ; R31.9 - Hematuria, unspecified Abdominal pain Qualifiers: Abdominal location: unspecified location Qualified Code(s): R10.9 - Unspecified abdominal pain Instructions: Urinary Tract Infection in Women (ED), Non-Alcoholic Fatty Liver Disease (ED) Condition: Good Pt referred to PMD for follow-up: Yes IPMP verified?: No Additional Instructions: Please call your Family Physician as soon as possible to schedule a follow-up appointment.follow the printed instruction should any worsening of the condition occur return as soon as possible. Allergies/Adverse Reactions: Allergies cefadroxil hydrate [From [facility]] Adverse Reaction (Verified 08/03/18 16:39) metformin Adverse Reaction (Verified 08/03/18 16:39) Diarrhea Home Medications: Ambulatory Orders Multivitamin [Multiple Vitamins] 1 each PO DAILY 07/27/17 Brimonidine Tartrate [Brimonidine Tartrate 0.2% Opt Courtney] 1 drop OP Q12HR Insulin Glargine,Hum.rec.anlog [Lantus] 40 unit SUBCUT BEDTIME 08/03/18 Disposition Discussed With: Patient, Family
--- NOTE | 2018-08-03 17:52 | CT ---
Exam: CT abdomen pelvis without intravenous contrast. Comparison: Ultrasound right upper quadrant performed 08/03/2018 on the same day. Reason for exam: Pain. FINDINGS: Mild basilar atelectasis without pleural effusion. The heart is not enlarged. The liver is lower in attenuation in the spleen. There are several small sub-centimeter hypodensitie s seen throughout the liver, too small to be accurately characterized. The gallbladder, pancreas, an d splenic parenchyma appear grossly unremarkable. 3 cm nodule in the left adrenal gland likely adenoma. The right adrenal gland appears unremarkable. No hydronephrosis, hydroureter or nephrolithiasis in either kidney. No focal small bowel dilatation or transition point. No intra-abdominal free air or pelvic free fluid. The bladder is incompletely evaluated secondary to non distension. No suspicious appearing osteoblastic or osteolytic lesions. Impression: 1. No acute inflammatory findings are seen within the abdomen or pelvis. 2. Hepatic steatosis with sub-centimeter hypodensities in the liver parenchyma, too small to be accu rately characterize. 3. 3 cm left adrenal hypodensity likely an adenoma
== END 2018-08-03 18:21 | disposition home or self-care (01) ==
LOC: ED 16:30
DX: N39.0 Urinary tract infection, site not specified (principal); R31.9 Hematuria, unspecified; R10.9 Unspecified abdominal pain; K76.0 Fatty (change of) liver, not elsewhere classified; E11.9 Type 2 diabetes mellitus without complications; I10 Essential (primary) hypertension; F17.210 Nicotine dependence, cigarettes, uncomplicated
CPT/HCPCS: 36415; 80053; 81001; 82150; 83690; 84703; 85025; 87086; 87502; 87651; 96372; 99283

== ENCOUNTER 2018-08-15 12:07 | Outpatient (CLI) | payer MEDICAID, OTHER | END 2018-08-15 12:08 | disposition home or self-care (01) | LOC: RHC-LAB 12:07 | PROVIDERS: ATTEND Nurse Practitioner Family | DX: R06.02 Shortness of breath (principal); R60.9 Edema, unspecified; E78.5 Hyperlipidemia, unspecified | CPT/HCPCS: 36415; 80053; 80061; 83880 ==

== ENCOUNTER 2018-08-30 06:34 | Outpatient (CLI) ==
--- NOTE | 2018-08-31 08:45 | ECHO2D ---
Date of Exam: 08/30/2018 Ordering Physician: NARESH ROBERTO Room #: OUTPATIENT Reason for Echo: SHORTNESS OF BREATH, ELEVATED BNP LEVEL, DYSLIPIDEMIA, ESSENTIAL HYPERTENSION, TOBACCO USE M-Mode Normal Adult Results LV Dimensions Normal Adult Results AoV Opening excursions >1.6 >1.6 LVEDD-base- 3.5-5.8 5.3 Ao root dimensions 2.0-3.7 3.0 LVESD-base- 3.1-4.6 L. Atrium dimensions 1.9-3.8 4.1 Post. Wall thickness 0.8-1.1 1.2 IV septum (thickness) 0.7-1.2 1.2 Post. Wall excursion 0.72-1.3 NORMAL Septal motion 0.8 Systolic motion R. Ventricular cavity 1.5-2.0 NORMAL LVEF 60% 50% Paradoxical septal wall motion NORMAL 2-D : ENLARGED LEFT ATRIAL CAVITY, NORMAL VALVES, STIFF LEFT VENTRICLE, NO EFFUSION, NO THROMBUS M-MODE: MV: NORMAL AV: NORMAL TV: NORMAL PV: CHAMBER SIZE: MILDLY ENLARGED LEFT ATRIAL CAVITY WALL MOTION: NORMAL PERICARDIUM: NORMAL INTERPRETATION: 1. BORDERLINE LEFT VENTRICULAR HYPERTROPHY 2. MILDLY ENLARGED LEFT ATRIAL CAVITY 3. STIFF LEFT VENTRICLE WITH EJECTION FRACTION 45-50% MTDD
== END 2018-08-30 06:35 | disposition home or self-care (01) ==
LOC: CAR 06:34
PROVIDERS: ATTEND Nurse Practitioner Family
DX: R06.02 Shortness of breath (principal); R79.89 Other specified abnormal findings of blood chemistry; E78.5 Hyperlipidemia, unspecified; I10 Essential (primary) hypertension; Z72.0 Tobacco use

== ENCOUNTER 2018-08-31 06:45 | Outpatient (CLI) ==
--- NOTE | 2018-08-31 08:25 | ECHOSTRESS ---
Date of Exam: 08/31/2018 Ordering Physician: NARESH ROBERTO Reason for Echo: SHORTNESS OF BREATH, DIABETES MELLITUS, HYPERTENSION, STRESS TEST = INCONCLUSIVE FOR ISCHEMIC ST- T WAVE CHANGES M-Mode Normal Adult Results LV Dimensions Normal Adult Results AoV Opening excursions >1.6 LVEDD-base- 3.5-5.8 Ao root dimensions 2.0-3.7 LVESD-base- 3.1-4.6 L. Atrium dimensions 1.9-3.8 Post. Wall thickness 0.8-1.1 IV septum (thickness) 0.7-1.2 Post. Wall excursion 0.72-1.3 Septal motion Systolic motion R. Ventricular cavity 1.5-2.0 LVEF 60% Paradoxical septal wall motion 2-D: NORMAL LEFT VENTRICULAR CONTRACTILITY RESTING AND POST EXERCISE M-MODE: MV: AV: TV: PV: CHAMBER SIZE: WALL MOTION: NORMAL LEFT VENTRICULAR CONTRACTILITY RESTING AND POST EXERCISE PERICARDIUM: INTERPRETATION: 1. NORMAL LEFT VENTRICULAR CONTRACTILITY RESTING AND POST EXERCISE MTDD
--- NOTE | 2018-08-31 08:35 | STRESSECHO ---
Date of Test: 08/31/2018 Ordering Physician: NARESH ROBERTO Occupation: DISABLED Reason for Exam: SHORTNESS OF BREATH, DIABETES MELLITUS, HYPERTENSION Smoking History: 30 PACK YEARS Height: 69" Weight: 255 Current Medications: OMEPRAZOLE, MULTIVITAMIN, LISINOPRIL-HCTZ, LANTUS, FLUTICASONE/SALMETEROL, BRIMONIDINE TARTRATE, LIPITOR, VENTOLIN HFA, ALBUTEROL SULFATE Resting EKG: SINUS RHYTHM / POOR R WAVE PROGRESSION Target Heart Rate: 149/176 S-T SEGMENT STAGE MPH/GRADE HEART RATE BPM BLOOD PRESSURE MMHG RHYTHM +/- ELEVATION DEPRESSION SYMPTOMS AT REST 80 148/92 SR X NONE 1 1.7/10% 110 162/94 SR X NONE 2 2.5/12% 3 3.4/14% 4 4.2/16% 5 5.0/18% Immediately After 132 SR X SHORTNESS OF BREATH Minutes Post Exercise 5 95 220/98 SR X NONE Minutes Post Exercise 10 85 164/96 SR X NONE DURATION OF EXERCISE: 3 MINUTES 33 SECONDS MAXIMUM HEART RATE REACHED: 132 REASON FOR TERMINATION: SHORTNESS OF BREATH INTERPRETATION: 98% OXYGEN SATURATION WITH EXERCISE ON ROOM AIR METS 3.0 1. NO EVIDENCE OF ISCHEMIA FROM 80BPM AT REST TO 132 BPM WITH EXERCISE 2. INCONCLUSIVE TEST SHE DID NOT REACH TARGET HEART RATE 3. BLOOD PRESSURE RESPONSE HYPERTENSION AT REST AND POST EXERCISE 4. NO CHEST PAIN OR DISCOMFORT 5. NO ARRHYTHMIAS 6. NORMAL LEFT VENTRICULAR CONTRACTILITY RESTING AND POST EXERCISE MTDD
== END 2018-08-31 06:46 | disposition home or self-care (01) ==
LOC: CAR 06:45
PROVIDERS: ATTEND Nurse Practitioner Family
DX: R06.02 Shortness of breath (principal); R79.89 Other specified abnormal findings of blood chemistry; E78.5 Hyperlipidemia, unspecified; I10 Essential (primary) hypertension; Z72.0 Tobacco use

== ENCOUNTER 2018-09-17 08:14 | Outpatient (CLI) | END 2018-09-17 08:15 | disposition home or self-care (01) | LOC: RHC-LAB 08:14 | PROVIDERS: ATTEND Nurse Practitioner Family | DX: E11.69 Type 2 diabetes mellitus with other specified complication (principal); I10 Essential (primary) hypertension; E78.5 Hyperlipidemia, unspecified; E78.1 Pure hyperglyceridemia; E66.9 Obesity, unspecified | CPT/HCPCS: 36415; 80053; 80061 ==

== ENCOUNTER 2018-09-20 14:02 | Outpatient (CLI) | END 2018-09-20 14:03 | disposition home or self-care (01) | LOC: RHC-LAB 14:02 | PROVIDERS: ATTEND Nurse Practitioner Family | DX: E11.69 Type 2 diabetes mellitus with other specified complication (principal) | CPT/HCPCS: 36415; 83037 ==

== ENCOUNTER 2018-11-02 08:49 | Outpatient (CLI) | END 2018-11-02 08:50 | disposition home or self-care (01) | LOC: LAB 08:49 | PROVIDERS: ATTEND Specialist | DX: I10 Essential (primary) hypertension (principal) | CPT/HCPCS: 36415; 83880 ==

== ENCOUNTER 2018-12-14 08:53 | Outpatient (CLI) | END 2018-12-14 08:54 | disposition home or self-care (01) | LOC: LAB 08:53 | PROVIDERS: ATTEND Nurse Practitioner Family | DX: R06.09 Other forms of dyspnea (principal); I51.7 Cardiomegaly; I20.0 Unstable angina; E11.69 Type 2 diabetes mellitus with other specified complication; E78.5 Hyperlipidemia, unspecified; Z72.0 Tobacco use | CPT/HCPCS: 36415; 80053; 80061; 83036; 85025 ==

== ENCOUNTER 2019-02-22 00:06 | Emergency (ER) ==
[2019-02-22 00:16] VITALS: TEMP 97.4; BMI 38.3
[2019-02-22] MEDS ORDERED: PHENERGAN 25 MG/ML VIAL 25 MG in SODIUM CHLORIDE 50 ML IV STA (00:21)
[2019-02-22] MEDS ORDERED: LACTATED RINGERS 1,000 ML IV STA (00:21)
[2019-02-22] MEDS ORDERED: PHENERGAN 25 MG/ML VIAL ONE (00:39)
[2019-02-22] MEDS ORDERED: TORADOL IVP STA (01:02)
--- NOTE | 2019-02-22 01:06 | ED.PDOC ---
General ED Provider: Dr. TONYA VELAZQUEZ Chief Complaint: Nausea/Vomiting Stated Complaint: Patient is a 43 year old female who comes to the ER with complaints of headache and vomiting. Was in the clinic and got some pain shots for siatic few days ago. Has not been checking blood glucose for the past few days but states she has not been eating either. Time Seen by Physician: 00:20 Information Source: Patient Primary Care Provider: NARESH ROBERTO Nursing and Triage Documentation Reviewed and Agree: Yes Does patient meet sepsis criteria?: No System Inflammatory Response Syndrome: Not Applicable Sepsis Protocol: For patient's 13 years and over: Temp is 96.8 and below OR 101 and greater Pulse >90 BPM Resp >20/minute Acutely Altered Mental Status Are patient's symptoms suggestive of a new infection, such as: -Pneumonia -Skin, Soft Tissue -Endocarditis -UTI -Bone, Joint Infection -Implantable Device -Acute Abdominal Infection -Wound Infection -Meningitis -Blood Stream Catheter Infection -Unknown Neurological Complaint Exam - Headache Complaint/Exam Onset: Gradual Duration: 1 day Symptoms Are: Still present Timing: Constant Worst Headache Ever: No Initial Severity: Moderate Current Severity: Severe Location: Diffuse Character: Reports: Throbbing Aggravating: Reports: Bright lights Alleviating: Reports: None Associated Signs and Symptoms: Denies: Dizziness, Seizure, Nausea, Vomiting, Sinus pressure, Fever, Neck pain, Neck stiffness, Decreased LOC, Visual changes Related Surgical History: Reports: None SAH Risk Factors: Reports: None SDH Risk Factors: Reports: None Normal Head CT Within Last 12 Months: Yes (jun 2018) Glascow Coma Scale (see protocol): 15 Meningeal Signs Positive: No Pain on Passive Flexion-Positive Kernig's: No ROM Limited In: No Limitiations Focal Weakness: Present: None Focal Sensory Loss: Present: None Gait: Normal Nystagmus Present: No Gag Reflex Present: No Babinski Sign: Negative Right, Negative Left Differential Diagnoses: Migraine, Sinus Headache, Tension Headache, Viral Syndrome Review of Systems - Review Of Systems Constitutional: Reports: Malaise, Weakness, Loss of appetite Eyes: Reports: Photophobia Ears, Nose, Mouth, Throat: Reports: No symptoms Respiratory: Reports: No symptoms Cardiac: Reports: No symptoms GI: Reports: Nausea, Vomiting : Reports: No symptoms Musculoskeletal: Reports: No symptoms Skin: Reports: No symptoms Neurological: Reports: Anxiety Endocrine: Reports: No symptoms Hematologic/Lymphatic: Reports: No symptoms All Other Systems: Reviewed and Negative Past Medical History - Past Medical History Previously Healthy: No Endocrine: Reports: DM 2 Cardiovascular: Reports: Hypertension Respiratory: Reports: Asthma Hematological: Reports: None Gastrointestinal: Reports: GERD Genitourinary: Reports: None Neuro/Psych: Reports: Migraine, Anxiety Musculoskeletal: Reports: Arthritis Cancer: Reports: None Last Menstrual Period: NA - Surgical History General Surgical History: Reports: Tubal ligation, , Orthopedic - Family History Family History: Reports: Unknown - Social History Smoking Status: Heavy tobacco smoker Hx Substance Use: No Alcohol Screening: None - Immunizations Tetanus Shot up to Date: No Physical Exam - Physical Exam Appearance: Ill-appearing, Obese Ill-appearing: Moderate Pain Distress: Severe Eyes: NICOLE, EOMI, Conjunctiva clear Neck: Supple Respiratory: Airway patent, Breath sounds clear, Breath sounds equal, Respirations nonlabored Cardiovascular: RRR, Pulses normal, No rub, No murmur GI/: Soft, Nontender, No masses, Bowel sounds normal, No Organomegaly Musculoskeletal: Normal strength Skin: Warm, Dry, Normal color Neurological: Alert, Oriented Psychiatric: Anxious Re-Evaluation - Re-Evaluation Time of Re-Evaluation: 01:10 Status: Improved Vital Signs Stable: Yes (200/91) - Re-Evaluation Time of Re-Evaluation: 02:09 Critical Care Note - Critical Care Note Total Time (mins): 50 Course - Course Hematology/Chemistry: 02/22/19 00:32 02/22/19 00:32 Orders, Labs, Meds: Lab Review 02/22/19 02/22/19 00:32 00:32 WBC 9.32 RBC 5.33 Hgb 15.4 Hct 45.8 MCV 85.9 MCH 28.9 MCHC 33.6 RDW Coeff of Christian 13.2 Plt Count 360 Immature Gran % (Auto) 0.4 Neut % (Auto) 79.1 Lymph % (Auto) 14.5 [place] % (Auto) 4.8 Eos % (Auto) 0.6 Baso % (Auto) 0.6 Immature Gran # (Auto) 0.0 Neut # (Auto) 7.4 H Lymph # (Auto) 1.4 [place] # (Auto) 0.5 Eos # (Auto) 0.1 Baso # (Auto) 0.1 Sodium 138.5 Potassium 4.24 Chloride 102.5 Carbon Dioxide 28.5 Anion Gap 11.74 BUN 31.5 H Creatinine 1.31 H Estimated GFR (MDRD) 44.00 BUN/Creatinine Ratio 24.04 Glucose 192.7 H Calcium 9.76 Total Bilirubin 0.60 AST 35.8 ALT 24.9 Alkaline Phosphatase 88.7 Total Protein 6.90 Albumin 3.58 Globulin 3.32 Albumin/Globulin Ratio 1.07 Amylase 72.9 Lipase 98.4 Orders Category Date Time Status ED IV/MEDIPORT/POWERPORT .ONCE EMERGENCY 02/22/19 00:21 Active AMYLASE Stat LAB 02/22/19 00:32 Completed CBC W/ AUTO DIFF Stat LAB 02/22/19 00:32 Completed COMPREHENSIVE METABOLIC PANEL Stat LAB 02/22/19 00:32 Completed LIPASE Stat LAB 02/22/19 00:32 Completed URINALYSIS C & S IF INDICATED Stat LAB 02/22/19 00:21 Uncollected 0.9 % Sodium Chloride [Saline Flush] MEDS 02/22/19 00:21 Active 1 syr IVF PRN PRN Clonidine HCl [Catapres] MEDS 02/22/19 03:09 Stat 0.1 mg PO ONCE STA Ketorolac Tromethamine [Toradol] MEDS 02/22/19 01:02 Discontinued 30 mg IVP ONCE STA Labetalol HCl [Trandate] MEDS 02/22/19 02:09 Discontinued 20 mg IVP ONCE STA Promethazine HCl [Phenergan 25 mg/ml Vial] MEDS 02/22/19 00:39 Discontinued 25 mg .ROUTE .STK-MED ONE Promethazine HCl [Phenergan 25 mg/ml Vial] 25 mg MEDS 02/22/19 00:21 Discontinued 0.9 % Sodium Chloride [Sodium Chloride] 50 ml IV ONCE Ringers Lactated Solution [Lactated Ringers] 1,000 ml MEDS 02/22/19 00:21 Discontinued IV BOLUS Medications Generic Name Dose Route Start Last Admin Trade Name Freq PRN Reason Stop Dose Admin Clonidine 0.1 mg 02/22/19 03:09 Catapres PO 02/22/19 03:10 ONCE STA Sodium Chloride 1 syr 02/22/19 00:21 02/22/19 01:34 Saline Flush IVF 1 syr PRN PRN Administration To flush IV Discontinued Medications Generic Name Dose Route Start Last Admin Trade Name Freq PRN Reason Stop Dose Admin Lactated Ringer's 1,000 mls @ 1,000 mls/hr 02/22/19 00:21 02/22/19 00:50 Lactated Ringers IV 02/22/19 01:20 1,000 mls/hr BOLUS STA Administration Promethazine HCl 25 mg/ Sodium 51 mls @ 75 mls/hr 02/22/19 00:21 02/22/19 00: 52 Chloride IV 02/22/19 01:01 75 mls/hr ONCE STA Administration Ketorolac Tromethamine 30 mg 02/22/19 01:02 02/22/19 01:33 Toradol IVP 02/22/19 01:03 30 mg ONCE STA Administration Labetalol HCl 20 mg 02/22/19 02:09 02/22/19 02:18 Trandate IVP 02/22/19 02:10 20 mg ONCE STA Administration Vital Signs: Temp Pulse Resp BP Pulse Ox 02/22/19 00:07 97.4 F L 91 H 20 206/125 H 96 Departure - Departure Time of Disposition: 04:00 Disposition: HOME SELF-CARE Discharge Problem: Migraine Qualifiers: Migraine type: without aura Status migrainosus presence: without status migrainosus Intractability: not intractable Qualified Code(s): G43.009 - Migraine without aura, not intractable, without status migrainosus Nausea & vomiting Qualifiers: Vomiting type: unspecified Vomiting Intractability: unspecified Qualified Code( s): R11.2 - Nausea with vomiting, unspecified Hypertension Qualifiers: Hypertension type: essential hypertension Qualified Code(s): I10 - Essential ( primary) hypertension Instructions: Migraine Headache (ED), Hypertension (ED) Condition: Fair Pt referred to PMD for follow-up: Yes IPMP verified?: No Additional Instructions: take Tylenol as needed for headache follow up with PCP in 3 days make sure to check your blood glucose. Allergies/Adverse Reactions: Allergies cefadroxil hydrate [From [facility]] Adverse Reaction (Verified 08/03/18 16:39) metformin Adverse Reaction (Verified 08/03/18 16:39) Diarrhea Home Medications: Ambulatory Orders Multivitamin [Multiple Vitamins] 1 each PO DAILY 07/27/17 Brimonidine Tartrate [Brimonidine Tartrate 0.2% Opth Courtney] 1 drop OP Q12HR 12/28/ 18 Aspirin 81 mg PO ONCE 12/20/18 Carvedilol [Coreg] 6.25 mg PO BID #60 12/20/18 Losartan/Hydrochlorothiazide [Losartan-Hctz 50-12.5 Mg Tab] 1 each PO DAILY Disposition Discussed With: Patient, Family
[2019-02-22] MEDS ORDERED: TRANDATE IVP STA (02:09)
[2019-02-22] MEDS ORDERED: CATAPRES PO STA (03:09)
[2019-02-22] MEDS ORDERED: CATAPRES ONE (03:22)
[2019-02-22 06:30] VITALS: BP 161/87
== END 2019-02-22 09:07 | disposition home or self-care (01) ==
LOC: ED 00:06
DX: G43.009 Migraine without aura, not intractable, without status migrainosus (principal); R11.2 Nausea with vomiting, unspecified; I10 Essential (primary) hypertension; E11.9 Type 2 diabetes mellitus without complications; F17.210 Nicotine dependence, cigarettes, uncomplicated
CPT/HCPCS: 36415; 80053; 82150; 83690; 85025; 96360; 96372; 99283